=== PATIENT | female | born 1975 | race Caucasian/White ===

== ENCOUNTER 2018-01-13 19:17 | Emergency (ER) | payer OTHER, BC | END 2018-01-13 21:40 | disposition home or self-care (01) | LOC: E/R 21:40 | DX: H61.21 Impacted cerumen, right ear (principal) | CPT/HCPCS: 99283 ==

== ENCOUNTER 2018-01-17 12:30 | Emergency (ER) | payer OTHER ==
[2018-01-17] MEDS: IBUPROFEN 600 MG TAB PO (15:09)
[2018-01-17] MEDS: ACETAMINOPHEN 500 MG TAB PO (15:10)
== END 2018-01-17 15:35 | disposition home or self-care (01) ==
LOC: FTE 12:30
DX: H92.01 Otalgia, right ear (principal); H61.21 Impacted cerumen, right ear
CPT/HCPCS: 69209; 99283-25